=== PATIENT | female | born 1980 | race African-American/Black ===

== ENCOUNTER 2021-10-03 22:23 | Emergency (ER) | payer MEDICAID, OTHER ==
[~2021-10-03] VITALS: Ht 170.2 cm; Wt 68.0 kg
[2021-10-03 22:27] VITALS: BP 151/88
[2021-10-04] MEDS ORDERED: CLIN300C8 PO (00:08)
[2021-10-04] MEDS ORDERED: cefTRIAXone W LIDOCAINE 1 GM IM IM ONE (02:00)
[2021-10-04] MEDS ORDERED: FLUCONAZOLE 100 MG TAB PO ONE (02:00)
[2021-10-04] MEDS ORDERED: AZITHROMYCIN 250 MG TAB PO ONE (02:00)
[2021-10-04] MEDS ORDERED: cefTRIAXone SOD 1,000 MG VL IM ONE (02:15)
== END 2021-10-04 02:32 | disposition home or self-care (01) ==
LOC: ER 22:23
DX: K61.1 Rectal abscess (principal); A64 Unspecified sexually transmitted disease; N89.8 Other specified noninflammatory disorders of vagina
CPT/HCPCS: 96372; 99283; J0696

== ENCOUNTER 2022-06-02 07:03 | Emergency (ER) | payer MEDICAID ==
[~2022-06-02] VITALS: Ht 170.2 cm; Wt 68.0 kg
[~2022-06-02 07:03] MED LIST: CLIN300C8 PO
[2022-06-02] MEDS ORDERED: KETOROLAC TROMETH 60MG/2ML VIAL IM ONE (08:45)
[2022-06-02] MEDS ORDERED: SUMAtriptan SUCCINATE 6 MG/0.5 ML VL SC ONE (08:45)
[2022-06-02] MEDS ORDERED: ONDANSETRON ODT 4 MG TAB PO ONE (08:45)
[2022-06-02 08:53] LABS: Urine Bacteria NONE SEEN /hpf (None Seen); Urine Blood Negative /uL (Negative); Urine Hyaline Cast FEW /lpf (0 - 2); Urine Mucus FEW (None Seen); Urine WBC 1 /hpf (0 - 5)
[2022-06-02 09:00] LABS: Amphetamine Screen, Urine NEGATIVE (NEGATIVE); Barbiturate Scree,Urine NEGATIVE (NEGATIVE); Benzodiazephine Screen, Urine NEGATIVE (NEGATIVE); Cannabinoid Screen, Urine NEGATIVE (NEGATIVE); Cocaine Screen, Urine NEGATIVE (NEGATIVE); Phencyclidine Screen, Urine NEGATIVE (NEGATIVE)
[2022-06-02] MEDS ORDERED: MEPERIDINE HCL (50 MG/ML) 1 ML VIAL IM ONE (09:00)
[2022-06-02] MEDS ORDERED: diphenhdrAMINE HCL 50 MG/1 ML VL IM ONE (09:00)
[2022-06-02 09:07] LABS: Opiate Scree,Urine POSITIVE (NEGATIVE)
[2022-06-02 09:19] VITALS: BP 128/70
[2022-06-02] MEDS ORDERED: BACL10TA PO (09:46)
[2022-06-02] MEDS ORDERED: CEPH-510 PO (09:46)
[2022-06-02] MEDS ORDERED: IBUP800T27 PO (09:46)
== END 2022-06-02 10:01 | disposition home or self-care (01) ==
LOC: ER 07:03
DX: S39.012A Strain of muscle, fascia and tendon of lower back, initial encounter (principal); G43.909 Migraine, unspecified, not intractable, without status migrainosus; F41.9 Anxiety disorder, unspecified; Z88.5 Allergy status to narcotic agent; Z79.899 Other long term (current) drug therapy; V89.2XXA Person injured in unspecified motor-vehicle accident, traffic, initial encounter; Y93.89 Activity, other specified; Y92.89 Other specified places as the place of occurrence of the external cause; Y99.8 Other external cause status
CPT/HCPCS: 80307; 81001; 96372; 99284; J1200; J2175; Q0162; J1885